=== PATIENT | female | born 1965 | race Caucasian/White ===

== ENCOUNTER 2024-12-13 13:57 | Inpatient (IN) | payer MEDICARE, OTHER ==
[~2024-12-13] VITALS: Ht 165.1 cm; Wt 80.7 kg
[~2024-12-13 13:57] MED LIST: CITA-144 PO; HALO10TA21 PO; LEVO5TAB13 PO; METO-325 PO; MIRT-149 PO; OLAN10TA74 PO; OMEP-148 PO; RISP4TAB94 PO; TRIH2TAB3 PO
[2024-12-13 14:19] LABS: BASOPHILS % (AUTO) 0.8 % (0.0-2.0); EOSINOPHILS % (AUTO) 0.9 % (1.0-6.0); HEMOGLOBIN 13.4 g/dL (12.0-16.0); LYMPHOCYTES # (AUTO) 1.9 K/uL (1.0-4.8); LYMPHOCYTES % (AUTO) 16.8 % (22.0-44.0); MEAN CORPUSCULAR HEMOGLOBIN 30.4 pg (26.0-34.0); MEAN CORPUSCULAR HGB CONC 33.4 G/dL (31.0-37.0); MEAN CORPUSCULAR VOLUME 91 fL (80-100); MONOCYTES # (AUTO) 1.1 K/uL (0.1-1.0); MONOCYTES % (AUTO) 9.6 % (2.0-9.0); NEUTROPHILS # (AUTO) 8.3 K/uL (1.8-7.7); NEUTROPHILS % (AUTO) 71.9 % (40.0-70.0); PLATELET COUNT (AUTO) 383 K/uL (150-450); RED CELL DISTRIBUTION WIDTH 14.3 % (11.5-14.5); WHITE BLOOD COUNT (AUTO) 11.6 K/uL (4.5-11.0)
[2024-12-13] MEDS ORDERED: HALO10TA21 PO (14:25)
[2024-12-13] MEDS ORDERED: QUET100T PO (14:25)
[2024-12-13] MEDS ORDERED: TRAZ-257 PO (14:25)
[2024-12-13] MEDS ORDERED: CLON-595 PO (14:25)
[2024-12-13 14:28] LABS: ANION GAP 7 mmol/L (8-16); CALCIUM, TOTAL 9.2 mg/dL (8.8-10.5); CARBON DIOXIDE 29 mmol/L (22-29); CHLORIDE 103 mmol/L (98-107); CREATININE 0.56 mg/dL (0.60-1.30); GLOMERULAR FILTR. RATE CALC > 60 mL/min (>60); GLUCOSE,RANDOM 93 mg/dL (70-110); POTASSIUM 3.8 mmol/L (3.5-5.1); SODIUM SERUM 138 mmol/L (136-145); UREA NITROGEN, BLOOD 27 mg/dL (7-18)
[2024-12-13 14:33] LABS: COVID AG,FIA SOURCE NASAL SWAB
[2024-12-13 14:34] LABS: ALBUMIN 3.3 g/dL (3.4-5.0); ALCOHOL, BLOOD (SERUM) < 3 mg/dL (0-10); BILIRUBIN,DIRECT 0.1 mg/dL (0.00-0.20); BILIRUBIN,TOTAL 0.4 mg/dL (0.1-1.0); TOTAL PROTEIN, SERUM 7.3 g/dL (6.4-8.2)
[2024-12-13 14:53] LABS: SARS-COV2 (COVID) ANTIGEN,FIA Negative (Negative)
[2024-12-13] MEDS ORDERED: HALOPERIDOL 5 MG TABLET PO PRN (15:00)
[2024-12-13] MEDS ORDERED: ZOLPIDEM TARTRATE 10 MG TABLET PO PRN (15:00)
[2024-12-13 15:46] LABS: APPEARANCE,URINE HAZY (CLEAR); BILIRUBIN,URINE NEGATIVE (NEGATIVE); COLOR,URINE YELLOW (YELLOW); GLUCOSE, URINE (UA) NEGATIVE (NEGATIVE); KETONES,URINE NEGATIVE (NEGATIVE); LEUKOCYTE ESTERASE ,URINE MODERATE (NEGATIVE); NITRATE,URINE POSITIVE (NEGATIVE); OCCULT BLOOD,URINE NEGATIVE (NEGATIVE); PROTEIN,URINE TRACE mg/dL (NEGATIVE); SPECIFIC GRAVITIY, URINE 1.024 (1.003-1.030); UROBILINOGEN,URINE <=1.0 mg/dL (<=1.0)
[2024-12-13 15:52] LABS: ALCOHOL, URINE DRUG SCREEN NEGATIVE (NEGATIVE); AMPHET/METH SCREEN,URINE NEGATIVE (NEGATIVE); BARBITURATE SCREEN, URINE NEGATIVE (NEGATIVE); BENZODIAZEPINES SCREEN,URINE NEGATIVE (NEGATIVE); CANNABINOID SCREEN,URINE NEGATIVE (NEGATIVE); COCAINE SCREEN,URINE NEGATIVE (NEGATIVE); METHADONE SCREEN, URINE NEGATIVE (NEGATIVE); OPIATE SCREEN,URINE NEGATIVE (NEGATIVE); PHENCYCLIDINE SCREEN,URINE NEGATIVE (NEGATIVE)
[2024-12-13 16:19] LABS: BACTERIA,URINE Many /HPF (None Seen); RBC,URINE 0-2 /HPF (0-2); SQUAMOUS EPITHELIAL CELL,UR Few /LPF (None Seen)
[2024-12-13] MEDS: CEPHALEXIN MONOHYDRATE 500 MG CAPSULE PO ONE (16:22)
[2024-12-13] MEDS: LORazepam 2 MG TABLET PO PRN (16:22)
[2024-12-13] MEDS ORDERED: 0.9% SODIUM CHLORIDE 10 ML SYRINGE IVP PRN (16:30)
[2024-12-13 17:01] LABS: D-DIMER 0.52 mg/L FEU (0.00-0.50); PROTHROMBIN TIME 10.6 SEC (9.4-11.6)
[2024-12-13] MEDS: SODIUM CHLORIDE 0.9% 1,850 ML IV ONE (17:04)
[2024-12-13] MEDS: CefTRIAXone 1 GM/DEXTROSE 50 ML IV ONE (17:27)
[2024-12-13] MEDS: LORazepam 2 MG/ML VIAL IM ONE (19:49)
[2024-12-13] MEDS: DiphenhydrAMINE HCL 50 MG/ML VIAL IM ONE (19:50)
[2024-12-13] MEDS: HALOPERIDOL LACTATE 5 MG/ML VIAL IM ONE (19:50)
[2024-12-14 15:36] VITALS: BP 141/90; PULSE 106; RESP 19; TEMP 97.8; O2SAT 96
[2024-12-14 21:51] VITALS: BP 125/89; PULSE 109; RESP 19; O2SAT 97
[2024-12-14] MEDS: QUEtiapine FUMARATE 100 MG TABLET PO PRN (21:54)
[2024-12-15] VITALS (7 sets, daily range): BP systolic 107–145; BP diastolic 57–86; PULSE 89–119; RESP 18–20; TEMP 97.6–98.4; O2SAT 94–98
[2024-12-15] MEDS: OMEPRAZOLE 20 MG CAPSULE PO SCH (07:59)
[2024-12-15] MEDS: METOPROLOL SUCCINATE 50 MG ER TABLET PO SCH (07:59)
[2024-12-15] MEDS ORDERED: METO-391 PO (11:24)
[2024-12-15] MEDS ORDERED: CLON1TAB12 PO (11:24)
[2024-12-15] MEDS ORDERED: OLAN20TA82 PO (11:24)
[2024-12-15] MEDS ORDERED: QUET50TA24 PO (11:24)
[2024-12-15] MEDS ORDERED: ONDANSETRON HCL 4 MG/2 ML VIAL IVP PRN (11:30)
[2024-12-15] MEDS ORDERED: ALBUTEROL SULFATE 2.5 MG/0.5 ML NEB SOLUTION NEB PRN (11:30)
[2024-12-15] MEDS ORDERED: ACETAMINOPHEN 325 MG TABLET PO PRN (11:30)
[2024-12-15] MEDS ORDERED: MAGNESIUM HYDROXIDE SUSPENSION 30 ML UDCUP PO PRN (11:30)
[2024-12-15] MEDS ORDERED: ZOLPIDEM TARTRATE 5 MG TABLET PO PRN (11:30)
[2024-12-15] MEDS ORDERED: IPRATROPIUM BROMIDE 0.5 MG/2.5 ML NEB SOLUTION NEB PRN (11:30)
[2024-12-15] MEDS ORDERED: BISACODYL 10 MG RECTAL RECTAL SUPPOSITORY PR PRN (11:30)
[2024-12-15] MEDS ORDERED: SODIUM CHLORIDE 0.9% 250 ML IV ONE (12:21)
[2024-12-15] MEDS: CefTRIAXone 1 GM/DEXTROSE 50 ML IV SCH (12:29)
[2024-12-15] MEDS: NICOTINE 21 MG/24 HOUR PATCH TD ONE (16:01)
[2024-12-15] MEDS: HEPARIN SODIUM,PORCINE 5,000 UNITS/ML VIAL SQ SCH (17:17)
[2024-12-15] MEDS ORDERED: QUEtiapine FUMARATE 100 MG TABLET PO PRN (19:45)
[2024-12-15] MEDS: VALPROIC ACID 250 MG/5 ML SOLUTION UDCUP PO SCH (20:53)
[2024-12-15] MEDS: MELATONIN 5 MG TABLET PO SCH (20:54)
[2024-12-15] MEDS: QUEtiapine FUMARATE 100 MG TABLET PO SCH (20:54)
[2024-12-15] MEDS: DONEPEZIL HCL 10 MG TABLET PO SCH (20:54)
[2024-12-16] MEDS: LORazepam 1 MG TABLET PO PRN (00:22)
[2024-12-16 05:54] VITALS: BP 102/60; PULSE 72; RESP 19; TEMP 98.1; O2SAT 94
[2024-12-16 06:54] LABS: BASOPHILS % (AUTO) 0.5 % (0.0-2.0); HEMOGLOBIN 12.7 g/dL (12.0-16.0); LYMPHOCYTES # (AUTO) 2.8 K/uL (1.0-4.8); LYMPHOCYTES % (AUTO) 35.2 % (22.0-44.0); MEAN CORPUSCULAR HEMOGLOBIN 30.4 pg (26.0-34.0); MEAN CORPUSCULAR HGB CONC 33.3 G/dL (31.0-37.0); MEAN CORPUSCULAR VOLUME 91 fL (80-100); MONOCYTES # (AUTO) 0.8 K/uL (0.1-1.0); MONOCYTES % (AUTO) 9.9 % (2.0-9.0); NEUTROPHILS # (AUTO) 4.2 K/uL (1.8-7.7); NEUTROPHILS % (AUTO) 52.4 % (40.0-70.0); PLATELET COUNT (AUTO) 386 K/uL (150-450); RED BLOOD CELL COUNT(AUTO) 4.16 MIL/uL (4.00-5.20); RED CELL DISTRIBUTION WIDTH 14.4 % (11.5-14.5)
[2024-12-16 07:12] LABS: ALANINE AMINOTRANSFERASE 32 U/L (12-78); ALBUMIN 2.9 g/dL (3.4-5.0); ALKALINE PHOSPHATASE 110 U/L (46-116); ANION GAP 7 mmol/L (8-16); ASPARTATE AMINOTRANSFERASE 23 U/L (15-37); BILIRUBIN,TOTAL 0.4 mg/dL (0.1-1.0); CALCIUM, TOTAL 9.4 mg/dL (8.8-10.5); CARBON DIOXIDE 29 mmol/L (22-29); CHLORIDE 102 mmol/L (98-107); CREATININE 0.46 mg/dL (0.60-1.30); GLOMERULAR FILTR. RATE CALC > 60 mL/min (>60); GLUCOSE,RANDOM 87 mg/dL (70-110); POTASSIUM 3.8 mmol/L (3.5-5.1); SODIUM SERUM 138 mmol/L (136-145); TOTAL PROTEIN, SERUM 6.6 g/dL (6.4-8.2); UREA NITROGEN, BLOOD 10 mg/dL (7-18)
[2024-12-16] MEDS: NICOTINE 21 MG/24 HOUR PATCH TD SCH (08:36)
[2024-12-16] MEDS: PANTOPRAZOLE SODIUM 40 MG DR TABLET PO SCH (08:37)
[2024-12-16 08:38] VITALS: BP 124/70; PULSE 79; RESP 19; TEMP 97.5; O2SAT 96
[2024-12-16] MEDS: QUEtiapine FUMARATE 25 MG TABLET PO SCH (08:41)
[2024-12-16 12:15] VITALS: BP 127/86; PULSE 80; RESP 20; TEMP 97.5; O2SAT 96
[2024-12-16 15:15] VITALS: BP 119/69; PULSE 82; RESP 19; TEMP 98; O2SAT 95
[2024-12-16 19:55] VITALS: BP 122/54; PULSE 83; RESP 19; TEMP 98.2; O2SAT 98
== END 2024-12-16 23:45 | DRG 690 ==
LOC: EMS 14:09 → EDH 18:54 → 5N 12-14 12:20
PROVIDERS: ADMIT Hospitalist; ATTEND Hospitalist
DX: N39.0 Urinary tract infection, site not specified (principal); R65.10 Systemic inflammatory response syndrome (SIRS) of non-infectious origin without acute organ dysfunction; F20.9 Schizophrenia, unspecified; Z20.822 Contact with and (suspected) exposure to COVID-19; F17.210 Nicotine dependence, cigarettes, uncomplicated; I10 Essential (primary) hypertension; K21.9 Gastro-esophageal reflux disease without esophagitis; G47.00 Insomnia, unspecified; Z88.8 Allergy status to other drugs, medicaments and biological substances; Z79.899 Other long term (current) drug therapy
CPT/HCPCS: 71045; 80048; 80053; 80076; 80307; 81001; 83605; 84145; 85025; 85379; 85610; 87040; 87077; 87086; 87186; 87635; 93005; 96365; 96372; 97163; 99285; G0378; G0480; J0696; J1200; J1630; J1644; J2060; J7050; 36415-L1; 36415-TC

== ENCOUNTER 2025-02-22 01:48 | Emergency (ER) | payer MEDICARE, OTHER ==
[~2025-02-22] VITALS: Ht 165.1 cm; Wt 68.0 kg
[~2025-02-22 01:48] MED LIST changes: -CITA-144 PO; +CLON0.1T2 PO; +DONE-51 PO; +FOLI-130 PO; -HALO10TA21 PO; -LEVO5TAB13 PO; -METO-325 PO; -MIRT-149 PO; +MULT-1303 PO; -OLAN10TA74 PO; -OMEP-148 PO; +QUET100T PO; +QUET25TA PO; -RISP4TAB94 PO; +THIA100T80 PO; -TRIH2TAB3 PO; +VALP250C48 PO
[2025-02-22 02:24] VITALS: TEMP 98.1
[2025-02-22 03:27] LABS: APPEARANCE,URINE CLEAR (CLEAR); BILIRUBIN,URINE NEGATIVE (NEGATIVE); COLOR,URINE COLORLESS (YELLOW); GLUCOSE, URINE (UA) NEGATIVE (NEGATIVE); KETONES,URINE NEGATIVE (NEGATIVE); LEUKOCYTE ESTERASE ,URINE NEGATIVE (NEGATIVE); NITRATE,URINE NEGATIVE (NEGATIVE); OCCULT BLOOD,URINE NEGATIVE (NEGATIVE); PH,URINE 7.5 (5.0-8.0); PH,URINE DRUG SCREEN 7.5 (5.0-8.0); PROTEIN,URINE NEGATIVE (NEGATIVE); SPECIFIC GRAVITIY, URINE 1.008 (1.003-1.030); UROBILINOGEN,URINE <=1.0 mg/dL (<=1.0)
[2025-02-22 03:34] LABS: AMPHET/METH SCREEN,URINE NEGATIVE (NEGATIVE); BARBITURATE SCREEN, URINE NEGATIVE (NEGATIVE); BENZODIAZEPINES SCREEN,URINE NEGATIVE (NEGATIVE); CANNABINOID SCREEN,URINE NEGATIVE (NEGATIVE); COCAINE SCREEN,URINE NEGATIVE (NEGATIVE); METHADONE SCREEN, URINE NEGATIVE (NEGATIVE); OPIATE SCREEN,URINE NEGATIVE (NEGATIVE); PHENCYCLIDINE SCREEN,URINE NEGATIVE (NEGATIVE)
[2025-02-22] MEDS: haloperidoL LACTATE 5 MG/ML VIAL IM ONE (03:54)
[2025-02-22] MEDS: LORazepam 2 MG/ML VIAL IM ONE (03:54)
[2025-02-22 03:55] LABS: ALCOHOL, URINE DRUG SCREEN NEGATIVE (NEGATIVE)
[2025-02-22 04:05] VITALS: BP 137/71; PULSE 82; RESP 16; O2SAT 98
== END 2025-02-22 06:06 ==
LOC: EMS 01:48
DX: R45.1 Restlessness and agitation (principal); F31.9 Bipolar disorder, unspecified; K21.9 Gastro-esophageal reflux disease without esophagitis; I10 Essential (primary) hypertension; F20.9 Schizophrenia, unspecified; Z88.8 Allergy status to other drugs, medicaments and biological substances; Z79.899 Other long term (current) drug therapy
CPT/HCPCS: 99284; 96372; 80307; 81003; J1630; J2060; 99285